=== PATIENT | male | born 1995 | race Caucasian/White ===

== ENCOUNTER 2021-07-30 14:38 | Emergency (ER) | payer OTHER ==
[~2021-07-30] VITALS: Ht 180.3 cm; Wt 68.0 kg
--- NOTE | 2021-07-30 14:50 | NUR ---
BIBS C/O LEFT THIGH PAIN S/P BEING BITTEN BY A DOG, PT IS NOT UP TO DATE WITH TDAP. VITALS ARE WITHIN NORMAL LIMITS, NO RESP DISTRESS NOTED.
[2021-07-30] MEDS ORDERED: ACETAMINOPHEN ES 500 MG TABLET ONE (15:16)
[2021-07-30] MEDS ORDERED: IBUP-1957 PO (15:16)
[2021-07-30] MEDS ORDERED: AMOX-430 PO (15:16)
[2021-07-30] MEDS ORDERED: IBUPROFEN 600 MG TABLET ONE (15:17)
[2021-07-30] MEDS ORDERED: TDAP [DIPH/PERTUSSIS/TET] 0.5 ML VIAL IM ONE ×2 (15:17→15:30)
--- NOTE | 2021-07-30 15:27 | NUR ---
Patient discharged to home in stable condition. Written and verbal after care instructions given. Patient verbalizes understanding of instruction.
[2021-07-30 15:28] VITALS: BP 138/73
[2021-07-30] MEDS ORDERED: IBUPROFEN 600 MG TABLET PO ONE (15:30)
[2021-07-30] MEDS ORDERED: ACETAMINOPHEN ES 500 MG TABLET PO ONE (15:30)
== END 2021-07-30 15:28 | disposition home or self-care (01) ==
LOC: ER 14:38
DX: S71.151A Open bite, right thigh, initial encounter (principal); J45.909 Unspecified asthma, uncomplicated; W54.0XXA Bitten by dog, initial encounter; Y93.89 Activity, other specified; Y92.099 Unspecified place in other non-institutional residence as the place of occurrence of the external cause; Y99.0 Civilian activity done for income or pay
CPT/HCPCS: 90715